=== PATIENT | male | born 1960 | race Caucasian/White ===

== ENCOUNTER → 2017-10-27 | Day surgery (SDC) | payer OTHER ==
[~2017-10-27] MED LIST: ACETAMINOPHEN 500 MG TAB PO ONE; ACETAMINOPHEN 500 MG TAB PO SCH; ALBUTEROL 3 ML DEYVIAL IH PRN; BISACODYL 10 MG SUPP PR PRN; BUPIVACAINE 0.25% 30 ML SDV ONE; CHLORHEXIDINE GLUC HIBICLENS 118 ML BTL TP ONE; DEXAMETHASONE 4 MG/ML VIAL IVP PRN; DEXAMETHASONE 4 MG/ML VIAL ONE; ENOXAPARIN 40 MG/0.4 ML SYR SC SCH; EPINEPHrine 1 MG/ML INJ ONE; FAMOTIDINE 20 MG TAB PO SCH; GABAPENTIN 300 MG CAP PO ONE; GENTAMICIN SULFATE 80 MG/2 ML VIAL ONE; HYDROCODONE/APAP 5/325 TAB PO PRN; HYDROmorphONE/DILAUDID 1 MG/ML INJ IVP PRN; LACTULOSE 20 GM/30 ML UDCUP PO PRN; LISINOPRIL 10 MG TAB PO SCH; LR 1,000 ML IV ONE; LR 500 ML IV PRN; MAGNESIUM HYDROXIDE 30 ML UDCUP PO PRN; METHOCARBAMOL 750 MG TAB PO PRN; MIDAZOLAM 2 MG/2 ML VIAL IVP ONE; NALOXONE HCL 0.4 MG/ML INJ IVP PRN; ONDANSETRON 4 MG/2 ML VIAL IVP PRN; ONDANSETRON DISINTEGRATING 4 MG TAB PO PRN; POLYETHYLENE GLYCOL 3350 17 GM PKT PO PRN; POLYETHYLENE GLYCOL 3350 17 GM PKT PO SCH; PROMETHAZINE HCL 25 MG/ML INJ IVP PRN; PROPOFOL 200 MG/20 ML VIAL ONE; PROPOFOL/EMULSION 500 MG/50 ML BOTTLE IV ONE; ROCURONIUM 100 MG/10 ML VIAL ONE; SENNOSIDES/DOCUSATE SODIUM TAB PO SCH; SURGIFLO MATRIX KIT WITH THROMBIN 8 ML TP ONE; THROMBIN (BOVINE) 5,000 UNIT VIAL TP ONE; ZOLPIDEM TARTRATE 5 MG TAB PO PRN; ceFAZolin 2 GM/DEXTROSE 100 ML IV ONE; ceFAZolin 2 GM/DEXTROSE 100 ML IV SCH; diphenhydrAMINE 25 MG CAP PO PRN; fentaNYL 100 MCG/2 ML INJ IVP PRN; fentaNYL 100 MCG/2 ML INJ ONE; oxyCODONE IR 5 MG TAB ONE; oxyCODONE IR 5 MG TAB PO PRN
--- NOTE | 2017-10-27 07:02 | PDANEPAE ---
ANE History of Present Illness here for lumbar HENRRY ANE Past Medical History - Cardiovascular History Hx Hypertension: Yes Hx Arrhythmias: No Hx Chest Pain: No Hx Coronary Artery / Peripheral Vascular Disease: No Hx CHF / Valvular Disease: No Hx Palpitations: No - Pulmonary History Hx COPD: No Hx Asthma/Reactive Airway Disease: No Hx Recent Upper Respiratory Infection: No Hx Oxygen in Use at Home: No Hx Sleep Apnea: No Sleep Apnea Screening Result - Last Documented: Negative - Neurologic History Hx Cerebrovascular Accident: No Hx Seizures: No Hx Dementia: No - Endocrine History Hx Diabetes: No - Renal History Hx Renal Disorders: No - Liver History Hx Hepatic Disorders: No - Neurological & Psychiatric Hx Hx Neurological and Psychiatric Disorders: No - Cancer History Hx Cancer: No - Congenital Disorder History Hx Congenital Disorders: No - GI History Hx Gastrointestinal Disorders: No - Other Health History Other Health History: NEG - Chronic Pain History Chronic Pain: Yes (BACK PAIN & R HIP & R LEG) - Surgical History Prior Surgeries: LIGAMENT L THUMB. L KNEE SCOPE 2008. R KNEE SCOPE 2009 ANE Review of Systems Review of systems is: negative Review of Systems: - Exercise capacity Exercise capacity: >=4 METS METS (RN): 6 METS ANE Patient History - Allergies Allergies/Adverse Reactions: No Known Allergies Allergy (Unverified 09/25/17 14:43) - Home Medications Home medications: home medication list seen and reviewed Home Medications: Herbals/Supplements -Info Only 1 ea PO DAILY 09/22/17 [Last Taken 1 Week Ago ~] Lisinopril [Zestril 10 mg (*)] 10 mg PO DAILY 09/22/17 [Last Taken 10/26/17 19: 30] Zolpidem Tartrate [Ambien] 10 mg PO HS PRN 09/22/17 [Last Taken 10/26/17 22:00] - NPO status NPO Status: no food or drink >8 hours NPO Since - Liquids (Date): 10/26/17 NPO Since - Liquids (Time): 22:00 NPO Since - Solids (Date): 10/26/17 NPO Since - Solids (Time): 20:00 - Smoking Hx Smoking Status: Former smoker - Family Anes Hx Family Hx Anesthesia Complications: NEG ANE Labs/Vital Signs - Vital Signs Vital Signs: reviewed preoperatively; see RN documention for details Blood Pressure: 144/86 Heart Rate: 58 Respiratory Rate: 16 O2 Sat (%): 98 Height: 180.34 cm Weight: 74.843 kg ANE Physical Exam - Airway Neck exam: FROM Mallampati Score: Class 1 - Pulmonary Pulmonary: no respiratory distress - Cardiovascular Cardiovascular: regular rate and rhythym - ASA Status ASA Status: II ANE Anesthesia Plan Anesthesia Plan: general endotracheal anesthesia
--- NOTE | 2017-10-27 07:15 | PDHPUP ---
History & Physical Update H&P update statement: This history and physical update is based on an assessment of the patient which was completed after admission or registration (within 24 hours), but prior to the surgery/procedure. H&P update: H&P reviewed & patient examined, no change in patient's condition since H&P completed
--- NOTE | 2017-10-27 08:11 | GHP ---
DATE OF ADMISSION: 10/27/2017 HISTORY OF PRESENT ILLNESS: This is a 57-year-old male who presented to our clinic a few weeks ago for a followup visit regarding back and leg pain. His pain begins in the lower back and radiates to the right buttock and hip and down the lateral side and occasional anterior medial involvement. The pain is most intense in the right lateral calf. Standing and sitting for prolonged periods of time worsen the pain. His pain will improve with forward flexion with riding a bike. He has had injections in the past that lasted approximately 6 months. He occasionally has paresthesias in the same distribution and does describe some features of neurogenic claudication. He states he has great toe weakness on the right and it has resolved with PT. He states he has count constant pain and rates as a 7 to 8 out of 10. He denies any bowel or bladder dysfunction. REVIEW OF SYSTEMS: All pertinent positive and negative review of systems are as stated in the HPI. PAST MEDICAL HISTORY: Hypertension and back pain and leg pain. PAST SURGICAL HISTORY: Reviewed and denies any past surgical history. ALLERGIES: Patient has no known drug allergies. SOCIAL HISTORY: Patient is a nonsmoker and is with his at his bedside. Smoking Status: He is a former smoker, but quit, date unknown. HOME MEDICATIONS: Include Ambien, lisinopril, and herbal supplements. OBJECTIVE: VITAL SIGNS: Blood pressure 144/86, heart rate 58, respiratory rate 16, O2 saturation 98% on room air, temperature 36.4 degrees Celsius. PHYSICAL EXAM: HEENT: Head is normocephalic, atraumatic. Eyes: Pupils are equal, react to light and accommodation. Extraocular muscles are intact. NECK: Nontender to palpation. Full range of cervical motion. RESPIRATORY: Normal work of breathing. CARDIOVASCULAR: Well-perfused. EXTREMITIES: There is no cyanosis or edema noted. NEUROLOGIC: Gross neurologic motor exam bilateral lower extremities 5/5 and equal in strength in all muscle groups including quadriceps, hamstrings, dorsiflexion, plantar flexion, and EHL. Bilateral upper extremities are 5/5 and equal in strength in deltoids, biceps, triceps, wrist extensors, flexors, interossei, and manager billing. Gait is normal. No tenderness over the midline spine. There is a positive straight leg-raise on the right. Cranial nerves 2-12 are grossly intact. No facial asymmetry. No tongue deviation. Extraocular muscles are intact and sensory is intact throughout. LABORATORY DATA: There is no current laboratory data to review. IMAGING DATA: Reviewed in the office and did show a multilevel discogenic endplate and hypertrophic facet changes through the lumbar spine, most pronounced at L4-5 and L5-S1, and there is also a 4.5 mm grade 1 anterolisthesis of L4 and L5 that is unchanged in flexion but reduced to 0 mm in extension. His MRI also reveals [id number] L4-5 stenosis secondary to a grade 1 spondylolisthesis in combination with a circumferential disk bulge and facet hypertrophy. At L3-4, he also has some foraminal lateral recess stenosis on the right. ASSESSMENT AND PLAN: This is a 57-year-old male who reports back pain and right leg pain. He has tried and failed NSAIDs, exercises, and injections. He has x-ray imaging of the lumbar spine, 09/04/2017 that reveals [id number] multilevel discogenic endplate and hypertrophic facet changes throughout the lumbar spine, and most pronounced at L4-5, L5-S1. There is a 4.5 mm grade 1 anterolisthesis of L4 and L5. This is unchanged in flexion, but reduces to 0 mm in extension. He has a lumbar MRI that reveals [id number] L4-5 stenosis secondary to a grade 1 spondylolisthesis in combination with a circumferential disk bulge and facet hypertrophy. At L3-4, he has foraminal and lateral recess stenosis on the right. He is neurologically intact with a mixed L4 and L5 radiculopathy, although the L5 radiculopathy is worse. He is interested in micro disk compression at both L3-4 and L4-5 and dynamic stabilization with a Limi flex device. We discussed single-level versus 2 level decompression. We discussed the risks, benefits, and alternatives of a 2 level decompression at L3-4 4-5, with an L4-5 Limiflex device and he would like to move forward. We believe he is a good candidate. All the questions were answered and all consents were signed. He elected to have surgery and arrived to [facility] today to move forward with his surgery. There have been no changes since he was seen in the office. He denies any fever , chills, or any other recent illnesses or infections. /[id number]/MODL MTDD
--- NOTE | 2017-10-27 10:23 | POSTOPPROG ---
Post Op Note Date of Operation: 10/27/17 Surgeon: Shayy Maravilla Bulb Grower: Mayda Brownlee PA-C Anesthesia: GET(General Endotracheal) Pre-op Diagnosis: Spondylolosthesis and radiculopathy Post-op Diagnosis: same Procedure: L3-4, L4-5 right hemilaminectomy and placement of Limiflex at L4/5 Inf/Abcess present in the surg proc area at time of surgery?: No Depth: Organ Space SOAP Progress Note Assessment/Plan: Assessment: Plan: 10/27/17 10:19 S: S: Patient is in PACU. Stable with expected postop pain but doing well otherwise. O: NAD, VSS CN II-XII grossly intact ALert, awake, following commands Speech fluent BLE 5/5= Incision c/d/i A: 57 yo male sp L3-4, L4-5 hemilaminectomy and placement of L4/5 Limiflex device for spondy at L4/5 P: -Discharge from PACU once PACU criteria met -Advance diet as tolerated -Activity as tolerated -No bendign lifting twisting more than 5-10 pounds for 6 weeks -Patient dw Dr. Maravilla -DC instructions given Objective: Vital Signs Temp Pulse Resp BP Pulse Ox 36.4 C 58 L 16 144/86 H 98 10/27/17 05:59 10/27/17 07:02 10/27/17 07:02 10/27/17 07:02 10/27/17 07:02
--- NOTE | 2017-10-27 10:32 | GOP ---
DATE OF ADMISSION: 10/27/2017 PREOPERATIVE DIAGNOSES: L4-5 spondylolisthesis, L3-4, L4-5 foraminal stenosis, radiculopathy. POSTOPERATIVE DIAGNOSES: L4-5 spondylolisthesis, L3-4, L4-5 foraminal stenosis, radiculopathy. PROCEDURES: 1. Right L3-4 hemilaminectomy, microdecompression, [id number], and L4-5 right hemilaminectomy, microdeco mpression, placement of LimiFlex paraspinous tension band device. 2. Microscope. DISTRICT SERVICE MANAGER: Mayda Bonner PA-C. ESTIMATED BLOOD LOSS: 35 mL. FLUID: 700 mL crystalloid. URINE OUTPUT: None. DRAINS: None. SPECIMENS: None. COMPLICATIONS: None. INDICATIONS: This is a 57-year-old male with spondylolisthesis, stenosis, radiculopathy, who has esha led conservative management and elected to move forward with surgical intervention. He was identifie d, consented, and sites were marked. Brought to the operating room, anesthetized under general endo tracheal tube anesthesia, rolled onto the Jung table. All pressure points were appropriately padd ed. He was prepped and draped in the usual sterile fashion. An 18-gauge spinal needle was used to m ark the incision site. Incision was anesthetized with 0.25% Marcaine with epinephrine. Incision was made with a 10 blade. Hemostasis was obtained with Bovie and bipolar cautery, dissecting down to th e laminae bilaterally. Placed a Nerissa and took an x-ray, verified in the appropriate position. Bro ught in the microscope. Using a high-speed drill, created a hemilaminectomy starting at L4-5 and ope franklin the ligamentum flavum with a ball-tip probe. Using 2 and 3 Kerrisons, extended the hemilaminecto my until we had a foraminotomy superiorly at L3-[address] to the inferior portion of the pedi gianna of L4-5 and undercut the lamina so we had a sublaminar decompression. Took a ball-tip probe, ashlyn ified the space, as well as the foramen to ensure that we were well decompressed. Took x-rays to ashlyn hair we had fully decompressed both levels. We then took the LimiFlex passer tool, and just above the spinous process of the L4, passed the tension band through in the appropriate configuration. We did LimiFlex passer tool at the inferior aspect of the L5 spinous process. We then placed th e tension band in the appropriate configuration through the LimiFlex spring devices and took an x-ray to verify it was in appropriate position. We did have to move the left-sided one more dorsally, so we pulled it out, placed it back in. We then took tension out, then locked down the left-sided band. Took tension out on the right-hand side, locked down the right-sided band, took an x-ray, verified it was in the appropriate position, removed all of the instrumentation, and cut the excess band mater ial with a 15 blade. We then took final x-rays, which revealed that the device was in excellent posi tion. Patient's neuromonitoring was stable. Copiously irrigated with over 1 L of gentamicin-infused saline. Closed the fascia with 2-0 Vicryl pop-offs, subcutaneous layer with 2-0 Vicryl pop-offs. T he skin was closed with 4-0 running Monocryl and Steri-Strips. Patient tolerated procedure well. No complications. /[id number]/MODL
--- NOTE | 2017-10-27 11:14 | POSTANESTH ---
Post Anesthetic Evaluation Cardiovascular Status: Normal, Stable Respiratory Status: Normal, Stable Level of Consciousness/Mental Status: Can Participate in Eval Pain Control: Adequate, Prn Tx Ordered Nausea/Vomiting Control: Adequate, Prn Tx Ordered Complications Possibly Related to Anesthesia: None Noted
[2017-10-27 12:23] VITALS: BP 105/63
== END | disposition home or self-care (01) ==
LOC: F3N 05:48 → UNDOADMOB 05:48 → FSGY 05:48 → EDSTATUS 07:15 → UNDODISOB 12:23
PROVIDERS: ATTEND Neurological Surgery
PROC: 00NY0ZZ Release Lumbar Spinal Cord, Open Approach (ICD-10-PCS; principal; 2017-10-27 07:15)
PROC: 4A1004G Monitoring of Central Nervous Electrical Activity, Intraoperative, Open Approach (ICD-10-PCS; principal; 2017-10-27 07:15)
DX: M43.16 Spondylolisthesis, lumbar region (principal); M48.061 Spinal stenosis, lumbar region without neurogenic claudication; M51.16 Intervertebral disc disorders with radiculopathy, lumbar region; I10 Essential (primary) hypertension
CPT/HCPCS: J0171; J0690; J1100; J1580; J2250; J2405; J2704; J3010

== ENCOUNTER → 2018-02-02 | Outpatient (CLI) | payer OTHER | LOC: FIMAGING 13:02 | PROVIDERS: ATTEND Physician Assistant | DX: Z09 Encounter for follow-up examination after completed treatment for conditions other than malignant neoplasm (principal); M43.16 Spondylolisthesis, lumbar region; M51.37 Other intervertebral disc degeneration, lumbosacral region; M53.87 Other specified dorsopathies, lumbosacral region ==

== ENCOUNTER → 2018-05-11 | Outpatient (CLI) | payer OTHER | LOC: FIMAGING 13:14 | PROVIDERS: ATTEND Physician Assistant | DX: Z09 Encounter for follow-up examination after completed treatment for conditions other than malignant neoplasm (principal); Z98.890 Other specified postprocedural states; M47.817 Spondylosis without myelopathy or radiculopathy, lumbosacral region; M46.97 Unspecified inflammatory spondylopathy, lumbosacral region ==